=== PATIENT | male | born 1965 | race Native Hawaiian/Other Pacific Islander ===

== ENCOUNTER 2016-06-17 12:00 | Outpatient (CLI) | payer BC | END 2016-06-17 19:15 | disposition home or self-care (01) | LOC: INF 12:00 | DX: E86.0 Dehydration (principal) | CPT/HCPCS: 96360; 96361 ==

== ENCOUNTER 2016-06-19 16:40 | Observation (INO) | payer BC ==
[~2016-06-19] VITALS: Ht 167.6 cm; Wt 71.7 kg
[2016-06-19 17:23] LABS: PLATELET COUNT 350 K/uL (142-355)
[2016-06-19 17:42] LABS: POTASSIUM 3.7 mmol/L (3.6-5.2); SODIUM 135 mmol/L (136-145)
[2016-06-19 17:44] VITALS: BP 150/97; TEMP 97.8; Ht 167.6 cm; Wt 71.7 kg
[2016-06-19] MEDS ORDERED: OMEP20CA PO (18:03)
[2016-06-19 20:00] VITALS: BP 127/79; TEMP 98.1
[2016-06-20] VITALS: BP 126/81; TEMP 98.1
--- NOTE | 2016-06-20 03:12 | NUR ---
06/19/[id number] BACK FROM CT AT THIS TIME.
--- NOTE | 2016-06-20 03:13 | NUR ---
06/19/[address] [place] [address]. T.O. R&V DR. ANTONIO/JOHNATHAN CLAY RN.
[2016-06-20 04:00] VITALS: BP 117/81; TEMP 97.8
[2016-06-20 05:16] LABS: PLATELET COUNT 307 K/uL (142-355)
[2016-06-20 05:36] LABS: POTASSIUM 3.4 mmol/L (3.6-5.2); SODIUM 137 mmol/L (136-145)
[2016-06-20 08:00] VITALS: BP 109/72; TEMP 98
[2016-06-20 12:00] VITALS: BP 120/80; TEMP 98.8
--- NOTE | 2016-06-20 12:01 | NUR ---
1100 NEW ORDERS REC'D TO TRANSFER PT TO [facility] IN [place] TO DR ALATORRE PER DR ANTONIO. DR ANTONIO SPOKE WITH MD ON PHONE. PT INFORMED OF TRANSFER DUE TO ABN CT REPORT AND SERVICES NOT PROVIDED HERE. PT VERBALIZED UNDERSTANDING 1150 REPORT GIVEAN TO [facility] AT [facility]. 1200 PT LEFT VIA STRECTHER WITH EMS. NO ACUTE IDSTRESS NTOED. IV REMAINS INTACT.
== END 2016-06-20 12:02 | disposition short-term general hospital (02) ==
LOC: MED/SURG 16:40
PROVIDERS: ADMIT Family Medicine
DX: K80.51 Calculus of bile duct without cholangitis or cholecystitis with obstruction (principal); R11.2 Nausea with vomiting, unspecified; E86.0 Dehydration; N28.1 Cyst of kidney, acquired; R10.9 Unspecified abdominal pain
CPT/HCPCS: 36415; 80053; 81000; 83735; 85027; 87040; 96360; 96361; 99220; G0378; G0379; Q9963

== ENCOUNTER 2016-06-20 12:10 | Outpatient (CLI) | payer BC ==
[~2016-06-20 12:10] MED LIST: OMEP20CA PO
== END 2016-06-20 12:55 | disposition short-term general hospital (02) ==
LOC: AMB 12:10
DX: K80.51 Calculus of bile duct without cholangitis or cholecystitis with obstruction (principal); R11.2 Nausea with vomiting, unspecified; E86.0 Dehydration; N28.1 Cyst of kidney, acquired; R10.9 Unspecified abdominal pain
CPT/HCPCS: A0425; A0427

== ENCOUNTER 2016-07-16 11:45 | Inpatient (IN) | payer BC ==
[2016-07-16] VITALS (8 sets, daily range): BP systolic 115–148; BP diastolic 76–97; TEMP 98.8–99.5; Ht 167.6 cm; Wt 71.3 kg
[~2016-07-16] VITALS: Ht 167.6 cm; Wt 71.3 kg
[2016-07-16 13:41] LABS: PLATELET COUNT 266 K/uL (142-355)
[2016-07-16 13:44] LABS: POTASSIUM 4.5 mmol/L (3.6-5.2); SODIUM 137 mmol/L (136-145)
[2016-07-16 14:00] LABS: PARTIAL THROMBOPLASTIN TIME 24.5 SECONDS (24.5-33.6)
[2016-07-17 04:00] VITALS: BP 118/75; TEMP 99.6
[2016-07-17 04:42] LABS: PLATELET COUNT 265 K/uL (142-355)
[2016-07-17 04:55] LABS: POTASSIUM 4.6 mmol/L (3.6-5.2); SODIUM 138 mmol/L (136-145)
[2016-07-17 08:25] VITALS: BP 125/80; TEMP 99
[2016-07-17 12:00] VITALS: BP 118/73; TEMP 98.9
[2016-07-17 16:00] VITALS: BP 118/73; TEMP 98.9
[2016-07-17 20:00] VITALS: BP 124/82; TEMP 99.7
[2016-07-18 00:11] VITALS: BP 115/85; TEMP 99.3
[2016-07-18 04:00] VITALS: BP 111/74; TEMP 100
[2016-07-18 05:22] LABS: PLATELET COUNT 213 K/uL (142-355)
[2016-07-18 05:41] LABS: SODIUM 133 mmol/L (136-145)
[2016-07-18 07:55] VITALS: BP 117/68; TEMP 99.6
[2016-07-18 12:00] VITALS: BP 117/63; TEMP 98.2
[2016-07-18 16:00] VITALS: BP 124/71; TEMP 98.4
[2016-07-18 20:19] VITALS: BP 118/84; TEMP 99.7
[2016-07-19 00:54] VITALS: BP 120/79; TEMP 100
[2016-07-19 04:00] VITALS: BP 120/76; TEMP 99.9
[2016-07-19 05:49] LABS: PLATELET COUNT 182 K/uL (142-355)
[2016-07-19 06:11] LABS: POTASSIUM 3.9 mmol/L (3.6-5.2); SODIUM 136 mmol/L (136-145)
[2016-07-19 08:04] VITALS: BP 120/86; TEMP 99
[2016-07-19 12:00] VITALS: BP 118/78; TEMP 99.1
[2016-07-19 16:47] VITALS: BP 116/84; TEMP 99.3
[2016-07-19 20:00] VITALS: BP 111/78; TEMP 99.6
[2016-07-20] VITALS: BP 120/79; TEMP 100.2
[2016-07-20 04:00] VITALS: BP 120/70; TEMP 99.4
[2016-07-20 05:44] LABS: POTASSIUM 3.9 mmol/L (3.6-5.2); SODIUM 136 mmol/L (136-145)
[2016-07-20 06:05] LABS: PLATELET COUNT 217 K/uL (142-355)
[2016-07-20 08:00] VITALS: BP 118/74; TEMP 98.1
[2016-07-20 12:00] VITALS: BP 112/82; TEMP 99.3
[2016-07-20 16:00] VITALS: BP 114/73; TEMP 98.9
[2016-07-20 20:00] VITALS: BP 128/87; TEMP 99.3
[2016-07-21] VITALS: BP 121/84; TEMP 99.9
[2016-07-21 04:00] VITALS: BP 119/80; TEMP 99.4
[2016-07-21 05:16] LABS: SODIUM 133 mmol/L (136-145)
[2016-07-21 07:25] LABS: PLATELET COUNT 214 K/uL (142-355)
[2016-07-21 08:00] VITALS: BP 118/79; TEMP 98.3
[2016-07-21 12:00] VITALS: BP 104/74; TEMP 98.3
[2016-07-21 16:00] VITALS: BP 120/60; TEMP 97.6
== END 2016-07-21 20:30 | disposition home or self-care (01) | DRG 409 ==
LOC: OR 11:45 → MED/SURG 16:45 → OR 16:46 → MED/SURG 16:46 → OR 20:40 → MED/SURG 07-21 20:30
PROVIDERS: ADMIT Student in an Organized Health Care Education/Training Program
PROC: 0FT40ZZ Resection of Gallbladder, Open Approach (ICD-10-PCS; principal; 2016-07-16)
PROC: 0FQ Hepatobiliary System and Pancreas, Repair (ICD-10-PCS; 2016-07-16)
PROC: 0FJ44ZZ Inspection of Gallbladder, Percutaneous Endoscopic Approach (ICD-10-PCS; 2016-07-16)
PROC: BF10YZZ Fluoroscopy of Bile Ducts using Other Contrast (ICD-10-PCS; 2016-07-16)
DX: K81.0 Acute cholecystitis (principal); S36.13XA Injury of bile duct, initial encounter; K81.1 Chronic cholecystitis; Y83.8 Other surgical procedures as the cause of abnormal reaction of the patient, or of later complication, without mention of misadventure at the time of the procedure; Y92.234 Operating room of hospital as the place of occurrence of the external cause
CPT/HCPCS: 36415; 80053; 85027; 85610; 85730; 94664; 94760; 96366; 96367; 96372; 96375; C1729; C1887; J0330; J0690; J0744; J1170; J1644; J2001; J2175; J2250; J2270; J2405; J2704; J2710; J3010; J3490

== ENCOUNTER 2019-11-22 10:38 | Outpatient (CLI) | payer BC | END 2019-11-22 19:17 | disposition home or self-care (01) | LOC: RAD 10:38 | DX: M54.12 Radiculopathy, cervical region (principal) ==

== ENCOUNTER 2020-03-08 09:06 | Outpatient (CLI) | payer BC | END 2020-03-08 20:00 | disposition home or self-care (01) | LOC: RAD 09:06 | PROVIDERS: ATTEND Nurse Practitioner Family | DX: Z13.820 Encounter for screening for osteoporosis (principal) ==

== ENCOUNTER 2020-07-03 11:31 | Outpatient (CLI) | payer BC ==
[2020-07-03 11:57] LABS: PLATELET COUNT 219 K/uL (142-355)
[2020-07-03 12:03] LABS: POTASSIUM 4.5 mmol/L (3.6-5.2)
== END 2020-07-03 19:33 | disposition home or self-care (01) ==
LOC: RAD 11:31
PROVIDERS: ATTEND Nurse Practitioner Family
DX: R05 Cough (principal)
CPT/HCPCS: 36415; 80053; 81000; 85027

== ENCOUNTER 2020-08-23 08:47 | Outpatient (CLI) | payer BC | END 2020-08-23 22:18 | disposition home or self-care (01) | LOC: RESP 08:47 | PROVIDERS: ATTEND Nurse Practitioner Family | DX: R53.83 Other fatigue (principal); N18.31 Chronic kidney disease, stage 3a ==

== ENCOUNTER 2020-08-24 07:53 | Outpatient (CLI) | payer BC | END 2020-08-24 23:59 | disposition home or self-care (01) | LOC: NM 07:53 | PROVIDERS: ATTEND Internal Medicine | DX: R53.83 Other fatigue (principal); R05 Cough; R07.89 Other chest pain | CPT/HCPCS: A9500 ==

== ENCOUNTER 2020-09-08 12:56 | Emergency (ER) | payer BC ==
[~2020-09-08] VITALS: Ht 167.6 cm; Wt 79.4 kg
[2020-09-08 13:07] VITALS: TEMP 97.5
[2020-09-08 13:24] LABS: PLATELET COUNT 230 K/uL (142-355)
[2020-09-08 13:38] LABS: SODIUM 145 mmol/L (136-145)
[2020-09-08 15:20] VITALS: BP 126/84
== END 2020-09-08 15:20 | disposition home or self-care (01) ==
LOC: ED 12:56
PROVIDERS: Family Medicine
DX: R07.89 Other chest pain (principal)
CPT/HCPCS: 80053; 84484; 85027; 93005; 99283

== ENCOUNTER 2021-07-26 12:58 | Outpatient (CLI) | payer BC ==
[2021-07-26 13:42] LABS: POTASSIUM 5.1 mmol/L (3.6-5.2)
== END 2021-07-26 21:19 | disposition home or self-care (01) ==
LOC: LABW 12:58 → RAD 12:58 → LABW 21:19
PROVIDERS: ATTEND Family Medicine
DX: R93.1 Abnormal findings on diagnostic imaging of heart and coronary circulation (principal)
CPT/HCPCS: 36415; 80053; 82550; 83880; 84484; 85379; 93005

== ENCOUNTER 2021-12-13 17:20 | Emergency (ER) | payer BC ==
[~2021-12-13] VITALS: Ht 167.6 cm; Wt 79.4 kg
[2021-12-13 19:14] VITALS: BP 152/80; TEMP 97.9
== END 2021-12-13 19:15 | disposition home or self-care (01) ==
LOC: ED 17:20
DX: S13.4XXA Sprain of ligaments of cervical spine, initial encounter (principal); R51.9 Headache, unspecified; V53.5XXA Driver of pick-up truck or van injured in collision with car, pick-up truck or van in traffic accident, initial encounter; Y92.89 Other specified places as the place of occurrence of the external cause
CPT/HCPCS: 99283